=== PATIENT | male | born 1985 | race Caucasian/White ===

== ENCOUNTER 2023-08-26 00:40 | Emergency (ER) | payer MEDICAID ==
[2023-08-26] MEDS: SUMAtriptan 6 MG/0.5 ML SDV SUBCUT ONE (01:05)
[2023-08-26] MEDS: Ondansetron 4 MG Tab.DIS PO ONE (01:17)
== END 2023-08-26 01:30 | disposition home or self-care (01) ==
LOC: VM.ED 00:40
DX: G43.909 Migraine, unspecified, not intractable, without status migrainosus (principal); F17.210 Nicotine dependence, cigarettes, uncomplicated
CPT/HCPCS: 96372; 99283; A9270; J3030

== ENCOUNTER 2024-03-16 15:28 | Emergency (ER) | payer MEDICAID ==
[2024-03-16 16:00] LABS: BASOPHILS PERCENT AUTO 0.2 % (0.2-1.2); EOSINOPHILS ABSOLUTE AUTO 0.1 x10^3/uL (0.0-0.5); EOSINOPHILS PERCENT AUTO 1.2 % (0.0-4.0); HEMATOCRIT 50.2 % (40.0-52.0); IMMATURE GRAN ABSOLUTE AUTO 0.01 x10^3/uL (0.00-0.07); LYMPHOCYTES ABSOLUTE AUTO 2.7 x10^3/uL (1.0-4.8); LYMPHOCYTES PERCENT AUTO 31.3 % (25.0-50.0); MEAN CORPUSCULAR HGB CONC 33.9 g/dL (32.0-36.0); MEAN CORPUSCULAR VOLUME 88.7 fL (78.0-93.0); MONOCYTES ABSOLUTE AUTO 0.7 x10^3/uL (0.0-0.8); MONOCYTES PERCENT AUTO 8.2 % (2.0-11.0); NEUTROPHILS ABSOLUTE AUTO 5.1 x10^3/uL (1.8-7.7); PLATELET COUNT,PLT 309 x10^3/uL (130-400); RED BLOOD CELL COUNT 5.66 x10^6/uL (4.5-6.0); WHITE BLOOD CELL COUNT,WBC 8.6 x10^3/uL (4.0-10.0)
[2024-03-16 16:01] LABS: APPEARANCE,URINE CLEAR (CLEAR); BILIRUBIN,URINE NEGATIVE (NEGATIVE); COLOR,URINE YELLOW (YELLOW); GLUCOSE,URINE NEGATIVE (NEGATIVE); KETONES,URINE TRACE mg/dL (NEGATIVE); LEUKOCYTE ESTERASE,URINE NEGATIVE (NEGATIVE); NITRITE,URINE NEGATIVE (NEGATIVE); OCCULT BLOOD,URINE NEGATIVE (NEGATIVE); PROTEIN,URINE NEGATIVE (NEGATIVE); UROBILINOGEN,URINE 0.2 EU/dL (0.2)
[2024-03-16 16:05] LABS: AMPHETAMINES SCREEN, URINE POSITIVE (NEGATIVE); BARBITURATE SCREEN,URINE NEGATIVE (NEGATIVE); BENZODIAZEPINES SCREEN,URINE NEGATIVE (NEGATIVE); BUPRENORPHINE SCREEN,URINE NEGATIVE (NEGATIVE)
[2024-03-16 16:06] LABS: COCAINE METABOLITES,URINE M (NEGATIVE); METHADONE SCREEN, URINE M (NEGATIVE); METHAMPHETAMINE SCREEN, URINE POSITIVE (NEGATIVE); OXYCODONE SCREEN,URINE M (NEGATIVE); PCP SCREEN,URINE M (NEGATIVE); THC SCREEN,URINE 50 NG/ML M (NEGATIVE)
[2024-03-16 16:25] LABS: A/G RATIO 1.05; ALANINE AMINOTRANSFERASE,ALT 47 U/L (16-63); ALBUMIN 4.3 g/dL (3.4-5.0); ALKALINE PHOSPHATASE 95 U/L (46-116); ANION GAP 10.1 mmol/L (5-15); ASPARTATE AMNIOTRANSFERASE,AST 11 U/L (15-37); BILIRUBIN TOTAL 0.4 mg/dL (0.2-1.0); BLOOD UREA NITROGEN,BUN 12 mg/dL (7-18); CARBON DIOXIDE,CO2 33 mmol/L (21-32); CHLORIDE,CL 101 mmol/L (98-107); CREATININE 1.1 mg/dL (0.70-1.30); ESTIMATED GFR 88 mL/min (>=60); GLUCOSE RANDOM 98 mg/dL (70-99); MAGNESIUM 2.2 mg/dL (1.8-2.4); POTASSIUM,K 4.1 mmol/L (3.5-5.1); PROTEIN TOTAL,TP 8.4 g/dL (6.4-8.2); SODIUM,NA 140 mmol/L (136-145); TSH ULTRASENSITIVE 1.299 uIU/mL (0.358-3.74)
[2024-03-16 16:34] LABS: ETHANOL BLOOD MEDICAL < 3 mg/dL (0-3)
[2024-03-16 16:36] LABS: ACETAMINOPHEN 0 ug/ml (10-30)
== END 2024-03-16 16:38 | disposition home or self-care (01) ==
LOC: VM.ED 15:28
DX: F15.10 Other stimulant abuse, uncomplicated (principal)
CPT/HCPCS: 36415; 80053; 80143; 80179; 80305-QW; 80307; 81003; 83735; 84443; 85025; 99283; 99284

== ENCOUNTER 2024-05-11 21:21 | Emergency (ER) | payer MEDICAID | END 2024-05-11 21:49 | disposition home or self-care (01) | LOC: VM.ED 21:21 | DX: F31.9 Bipolar disorder, unspecified (principal) | CPT/HCPCS: 99283; 99284 ==

== ENCOUNTER 2025-06-26 14:33 | Emergency (ER) | payer MEDICAID ==
[2025-06-26] MEDS: Orphenadrine 60 MG/2 ML Inj IM ONE (15:12)
[2025-06-26] MEDS: Ketorolac 30 MG/ML SDV IM ONE (15:13)
== END 2025-06-26 15:33 | disposition home or self-care (01) ==
LOC: VM.ED 14:33
DX: M54.50 Low back pain, unspecified (principal); F17.210 Nicotine dependence, cigarettes, uncomplicated; Z79.899 Other long term (current) drug therapy
CPT/HCPCS: 96372; 99283; J1885; J2360; 99282